=== PATIENT | male | born 1995 | race Caucasian/White ===

== ENCOUNTER 2020-08-04 21:11 | Emergency (ER) | payer MEDICAID ==
[~2020-08-04] VITALS: Ht 177.8 cm; Wt 73.0 kg
[2020-08-04 21:15] VITALS: BP 119/82
[2020-08-04] MEDS ORDERED: ACETAMINOPHEN 325MG TABLET PO ONE (22:30)
[2020-08-04] MEDS ORDERED: LIDOCAINE 1%/EPI 1:100,000 10 ML VIAL IJ ONE (22:30)
[2020-08-04] MEDS ORDERED: BACITRACIN ZINC OINT UDPKT TOP ONE (22:30)
[2020-08-04] MEDS ORDERED: TETANUS, DIPHTHERIA, PERTUSSIS VAC/PF 0.5ML (>7YR OLD) IM ONE (22:30)
[2020-08-04] MEDS ORDERED: LIDOCAINE HCL/EPINEPHRINE 1%-EPI 1:100,000 20 ML VIAL INFIL NR (22:45)
== END 2020-08-04 23:30 | disposition home or self-care (01) ==
LOC: ER 21:11
DX: S01.81XA Laceration without foreign body of other part of head, initial encounter (principal); I10 Essential (primary) hypertension; W22.8XXA Striking against or struck by other objects, initial encounter; Y93.89 Activity, other specified; Y92.89 Other specified places as the place of occurrence of the external cause; Z23 Encounter for immunization
CPT/HCPCS: 12013; 90471; 90715; 99283; J3490

== ENCOUNTER 2020-08-06 22:18 | Emergency (ER) | payer MEDICAID ==
[~2020-08-06] VITALS: Ht 177.8 cm; Wt 68.0 kg
[2020-08-06] MEDS ORDERED: BACITRACIN ZINC OINT UDPKT TOP ONE (22:30)
[2020-08-06] MEDS ORDERED: IBUPROFEN 600MG TABLET PO ONE (22:30)
[2020-08-06 22:37] VITALS: BP 119/67
== END 2020-08-06 23:14 | disposition home or self-care (01) ==
LOC: ER 22:18
DX: Z48.00 Encounter for change or removal of nonsurgical wound dressing (principal); R51 Headache
CPT/HCPCS: 99283

== ENCOUNTER 2020-08-09 23:32 | Emergency (ER) | payer MEDICAID ==
[~2020-08-09] VITALS: Ht 177.8 cm; Wt 78.0 kg
[2020-08-10 00:51] VITALS: BP 135/80
== END 2020-08-10 00:52 | disposition home or self-care (01) ==
LOC: ER 23:32
DX: S01.81XD Laceration without foreign body of other part of head, subsequent encounter (principal); Z48.02 Encounter for removal of sutures; X58.XXXD Exposure to other specified factors, subsequent encounter
CPT/HCPCS: 99281